=== PATIENT | male | born 1955 | race Caucasian/White ===

== ENCOUNTER → 2024-10-30 10:36 | Outpatient (BNVA) | payer OTHER, SELFPAY | PROVIDERS: Referring Provider Physician Assistant; Visit Provider Internal Medicine Rheumatology | DX: M06.00 Rheumatoid arthritis without rheumatoid factor, unspecified site (principal) | CPT/HCPCS: 36415; 80076; 82306; 82565; 82657; 85025; 85651; 86140; 86480; 86704; 86803; 87340 ==

== ENCOUNTER 2024-11-08 10:46 | Outpatient (CLI) | payer OTHER, SELFPAY ==
[2024-11-10 12:34] LABS: Hepatitis B Virus DNA PCR NOT DETECTED Log IU/mL (NOT DETECTED)
== END 2024-11-08 10:47 | disposition home or self-care (01) ==
PROVIDERS: Visit Provider Internal Medicine Rheumatology
DX: Z79.899 Other long term (current) drug therapy (principal)
CPT/HCPCS: 36415; 87517

== ENCOUNTER 2024-12-19 15:36 | Outpatient (CLI) | payer OTHER, SELFPAY ==
--- NOTE | 2024-12-19 15:48 | XR_ITS ---
WS: [id number] Left hand, 3 views, 12/19/2024 Clinical Data: third digit pain Comparison: None. Findings: No fractures or dislocations are seen. The soft tissues are unremarkable. There is moderate osteoarthritis of the IP joints of the left thumb and the left hand. There is osteoarthritis at the radial ulnar articulation which may be old trauma. 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
== END 2024-12-19 15:37 | disposition home or self-care (01) ==
PROVIDERS: PCP Family Medicine; Visit Provider Family Medicine
DX: M79.642 Pain in left hand (principal); M19.032 Primary osteoarthritis, left wrist
CPT/HCPCS: 73130

== ENCOUNTER → 2025-01-25 14:04 | Outpatient (BNVA) | payer OTHER, SELFPAY | PROVIDERS: PCP Family Medicine; Visit Provider Family Medicine | DX: Z12.5 Encounter for screening for malignant neoplasm of prostate (principal); E78.5 Hyperlipidemia, unspecified; N40.1 Benign prostatic hyperplasia with lower urinary tract symptoms; R35.0 Frequency of micturition | CPT/HCPCS: 80053; 80061; G0103 ==

== ENCOUNTER → 2025-03-05 14:59 | Outpatient (BNVA) | payer OTHER, SELFPAY | PROVIDERS: PCP Family Medicine; Visit Provider Internal Medicine Rheumatology | DX: Z79.899 Other long term (current) drug therapy (principal) | CPT/HCPCS: 80076; 82565; 85025; 85651; 86140 ==